=== PATIENT | female | born 1965 | race American Indian/Alaskan Native ===

== ENCOUNTER 2020-06-07 13:59 | Emergency (ER) | payer MEDICAID ==
[2020-06-07 14:46] VITALS: BP 138/97
[2020-06-07] MEDS ORDERED: ACETAMINOPHEN 325 MG TAB PO ONE (15:28)
[2020-06-07] MEDS ORDERED: IBUPROFEN 800 MG TAB PO ONE (15:28)
--- NOTE | 2020-06-07 15:32 | Emergency Department Report ---
ED General Adult HPI - General Chief complaint: Dental/Oral Stated complaint: TOOTHACH/FACE SWOLLEN Time Seen by Provider: 06/07/20 14:47 Source: patient Mode of arrival: Ambulatory Limitations: No Limitations - History of Present Illness Initial comments: 54-year-old -[place] female patient presents with complaints of left lower dental pain x2 days. She states her face began swelling yesterday. She rates her pain as a 10/10 in severity and denies trying any OTC medications for her symptoms. Patient is not currently following with a dental specialist. She denies any fever/chills/sweats, dysphagia, or difficulty opening her jaw. - Related Data Previous Rx's Medication Instructions Recorded Last Taken Type Acetaminophen/Codeine [Tylenol 1 tab PO Q8H PRN #8 tab 06/07/20 Unknown Rx /Codeine # 3 tab] Clindamycin [Clindamycin CAP] 300 mg PO Q6H 10 Days #40 capsule 06/07/20 Unknown Rx Ibuprofen [Motrin 800 MG tab] 800 mg PO Q8HR PRN #20 tablet 06/07/20 Unknown Rx ED Review of Systems ROS: Stated complaint: TOOTHACH/FACE SWOLLEN Other details as noted in HPI ROS: Stated complaint: COUGHING/BODY ACHES Other details as noted in HPI Constitutional: denies: chills, fever, malaise ENT: dental pain. denies: throat pain Respiratory: denies: cough, shortness of breath Cardiovascular: denies: chest pain Gastrointestinal: denies: nausea, vomiting Skin: denies: change in color Neurological: denies: headache ED Past Medical Hx - Past Medical History Previous Medical History?: Yes - Social History Smoking Status: Never Smoker Substance Use Type: None - Medications Home Medications: Home Medications Medication Instructions Recorded Confirmed Last Taken Type Acetaminophen/Codeine [Tylenol 1 tab PO Q8H PRN #8 tab 06/07/20 Unknown Rx /Codeine # 3 tab] Clindamycin [Clindamycin CAP] 300 mg PO Q6H 10 Days #40 capsule 06/07/20 Unknown Rx Ibuprofen [Motrin 800 MG tab] 800 mg PO Q8HR PRN #20 tablet 06/07/20 Unknown Rx ED Physical Exam - General Limitations: No Limitations General appearance: alert, in no apparent distress - Head Head exam: Present: atraumatic, normocephalic - Eye Eye exam: Present: normal appearance. Absent: scleral icterus - ENT ENT exam: Present: mucous membranes moist - Expanded ENT Exam Expanded Mouth exam: Absent: drooling, trismus Teeth exam: Present: dental caries (Diffuse) 1 - Dental Tenderness (Significant dental decay noted with overlying facial swelling and tenderness; no cellulitic changes noted) - Neck Neck exam: Present: normal inspection. Absent: other (No Omar is noted) - Respiratory Respiratory exam: Present: normal lung sounds bilaterally. Absent: respiratory distress - Cardiovascular Cardiovascular Exam: Present: regular rate - Neurological Exam Neurological exam: Present: alert, oriented X3, normal gait - Psychiatric Psychiatric exam: Present: normal affect, normal mood - Skin Skin exam: Present: warm, dry, intact, normal color. Absent: rash ED Course Vital Signs 06/07/20 14:42 Temperature 98 F Pulse Rate 80 Respiratory 18 Rate Blood Pressure 138/97 O2 Sat by Pulse 100 Oximetry ED Medical Decision Making - Medical Decision Making 54-year-old -[place] female patient presents with complaints of left lower dental pain x2 days. She states her face began swelling yesterday. She rates her pain as a 10/10 in severity and denies trying any OTC medications for her symptoms. Patient is not currently following with a dental specialist. She denies any fever/chills/sweats, dysphagia, or difficulty opening her jaw. Unable to visualize abscess head on exam, however will treat for dental abscess with clindamycin and pain medicine. Patient provided with dental clinic list and informed to follow-up within 48 hours. Her vitals are within normal limits, she is well-appearing, she is stable for discharge home. Discussed signs and symptoms that should prompt immediate return to the emergency department in detail with patient who verbalizes understanding. Critical care attestation.: If time is entered above; I have spent that time in minutes in the direct care of this critically ill patient, excluding procedure time. ED Disposition Clinical Impression: Dental abscess Disposition: - TO HOME OR SELFCARE Is pt being admited?: No Condition: Stable Instructions: Dental Abscess Additional Instructions: Please follow-up with the dental specialist from the list provided within 2 days Prescriptions: Clindamycin [Clindamycin CAP] 300 mg PO Q6H 10 Days #40 capsule Ibuprofen [Motrin 800 MG tab] 800 mg PO Q8HR PRN #20 tablet PRN Reason: pain Acetaminophen/Codeine [Tylenol /Codeine # 3 tab] 1 tab PO Q8H PRN #8 tab PRN Reason: Pain , Severe (7-10) Forms: Work/School Release Form(ED)
[2020-06-07] MEDS ORDERED: IBUPROFEN 800 MG TAB ONE (16:15)
[2020-06-07] MEDS ORDERED: ACETAMINOPHEN 325 MG TAB ONE (16:16)
== END 2020-06-07 15:15 | disposition home or self-care (01) ==
LOC: ED 13:59
DX: K04.7 Periapical abscess without sinus (principal); Z79.1 Long term (current) use of non-steroidal anti-inflammatories (NSAID); Z79.2 Long term (current) use of antibiotics; Z79.899 Other long term (current) drug therapy
CPT/HCPCS: 99282